=== PATIENT | female | born 1995 | race Hispanic/Latino ===

== ENCOUNTER → 2019-11-26 | Outpatient (CLI) | payer BC, MEDICAID ==
--- NOTE | 2019-11-26 10:55 | CT ---
EXAM DESCRIPTION: Abdomen/Pelvis w/Contrast CLINICAL HISTORY: 24 years Female, UNSPECIFIED ABDOMINAL PAIN COMPARISON: Pelvic ultrasound dated 04/12/2016. TECHNIQUE: Contiguous 3 mm axial images were obtained from the lung bases to the level of the proximal femora after the administration of intravenous and oral contrast. Sagittal and coronal reconstructions were reviewed. FINDINGS: THORAX: The imaged lower thorax demonstrates no gross abnormality. LIVER: The liver demonstrates normal size and density with no intrahepatic biliary ductal dilatation or focal masses. GALLBLADDER: Contracted with multiple gallstones PANCREAS: Appears normal with no cystic or solid lesions. SPLEEN: Normal ADRENAL GLANDS: Normal with no nodules or masses. KIDNEYS: Both kidneys enhance symmetrically with no hydronephrosis or nephrolithiasis or perinephric fluid collections. No focal masses are identified. The visualized ureters appear grossly unremarkable. STOMACH: The stomach is well-distended with no gross abnormality. SMALL BOWEL: The small bowel loops demonstrate variable degrees of distention with no abnormal dilatation or other signs to suggest bowel obstruction. LARGE BOWEL: The colon is adequately distended with no gross abnormality. The appendix is well-visualized and appears normal No evidence of free intraperitoneal air or fluid. RETROPERITONEUM: The abdominal aorta is nonaneurysmal with no significant atherosclerosis. The inferior vena cava is normal in size and caliber. No abnormally enlarged retroperitoneal lymph nodes are identified. URINARY BLADDER:The urinary bladder is well-distended with no gross abnormality. Uterus is anteverted and appears normal. 4.3 cm simple right ovarian cyst. Left ovary appears grossly unremarkable. ADDITIONAL FINDINGS: None. BONES: No significant degenerative changes are identified in the visualized bones. Bilateral pars defects of L5 with minimal grade 1 anterolisthesis of L5 over S1. IMPRESSION: 1. Cholelithiasis with no CT evidence of acute cholecystitis. 2. 4.3 cm simple right ovarian cyst. No follow-up imaging is recommended. Reference: J Am Lazarus Radiol 2013;10:675-681 3. Bilateral pars defects of L5 with minimal grade 1 anterolisthesis of L5 over S1. This exam was performed according to our departmental dose-optimization program, which includes automated exposure control, adjustment of the mA and/or kV according to patient size and/or use of iterative reconstruction technique. Electronically signed by: Kelly Jenkins MD 11/26/2019 10:53 AM CDT
== END ==
LOC: CT 09:17
PROVIDERS: ATTEND Emergency Medicine
DX: K80.20 Calculus of gallbladder without cholecystitis without obstruction (principal); N83.201 Unspecified ovarian cyst, right side; M43.17 Spondylolisthesis, lumbosacral region